=== PATIENT | female | born 1995 | race Caucasian/White ===

== ENCOUNTER 2017-07-18 16:41 | Emergency (ER) | payer SELFPAY ==
--- NOTE | ~2017-07-18 | ER ---
PATIENT'S NAME: KODY STEINBERG [facility] AGE: 22 Y [address] ROOM: [place] [address] LOCATION: [facility] ADMIT DATE: 07/18/2017 ER/Outpatient Report DISCHARGE DATE: 07/18/2017 FAMILY PHYSICIAN: PHYSICIAN, JIMMY ATTENDING PHYSICIAN: Maida Dillon Time of Arrival: 1641. Time of Evaluation: 1720. IDENTIFICATION: A 22-year-old female. CHIEF COMPLAINT: Chest pain. HISTORY OF PRESENT ILLNESS: The patient is a 22-year-old female who presented with chest pain. Initial workup was initiated after discussion with the nursing staff, but there was a delay in seeing the patient due to high volume in the emergency room. The patient has pain in her midportion of her back and chest, worse with movement. She is short of breath. She has never had pain like this before. She has had no recent injury. She is on progesterone implant in her left arm, but it May 01. ALLERGIES: CIPRO. CURRENT MEDICATIONS: Denies. MEDICAL PROBLEMS: Endometriosis and hypotension. PRIOR SURGERIES: Laparoscopy, colonoscopy, section x2. SOCIAL HISTORY: The patient is . Lives here in [place]. Tobacco use, 1 pack per day. Alcohol use, denies. Drug use, denies. REVIEW OF SYSTEMS: All systems reviewed and negative other than what is noted in the HPI. LAST MENSTRUAL PERIOD: Unknown. PATIENT'S NAME: KODY STEINBERG [facility] AGE: 22 Y [address] ROOM: [place] [address] LOCATION: [facility] ADMIT DATE: 07/18/2017 ER/Outpatient Report DISCHARGE DATE: 07/18/2017 FAMILY PHYSICIAN: PHYSICIAN, NO ATTENDING PHYSICIAN: Maida Dillon PHYSICAL EXAMINATION: VITAL SIGNS: Height 5 feet 1 inch, weight 48.2 kg. Blood pressure 110/55, pulse 99, respirations 18, temperature 98.7, sats 93%. GENERAL: A 22-year-old female, in moderate distress. She is seated in an upright position, very stiff. She said that is her position of comfort or else leaning completely forward. HEENT: Unremarkable. LUNGS: Clear to auscultation. HEART: Regular rate and rhythm. No murmur, rub, or gallop. ABDOMEN: Bowel sounds present. Soft, nondistended, nontender. SKIN: [place], warm, and dry. No lesions or rashes noted. BACK: No tenderness to palpation. No CVA tenderness. MUSCULOSKELETAL: No chest wall tenderness. No lower extremity edema. No calf tenderness. I cannot reproduce her pain to palpation at all, but she states it is worse with movement. EMERGENCY DEPARTMENT COURSE: She was given Toradol 30 mg IM with no relief of her pain. UA negative. Chest x-ray, no acute findings. EKG normal sinus rhythm at 86 beats per minute. No acute ST elevation or depression. CBC is within normal limits. Sodium 140, potassium 3.5, chloride 107, CO2 of 27, BUN 10, creatinine 0.8. Blood sugar 115. Liver enzymes normal. Cardiac enzymes negative. HCG less than 1. D-dimer less than 0.19. CT scan PE protocol is pending at the time of shift change as the patient continued to have severe 10/10 pain despite the Toradol. An IV was initiated. Fentanyl was given for pain relief and CT PE protocol to rule out PE and aortic dissection was ordered and Dr. Rodas will assume care. MAIDA DILLON MD CAR/modl /[id number] d: 07/19/17707 t: 07/27/172040, OUTPATIENT REPORT
--- NOTE | ~2017-07-18 | ER ---
PATIENT'S NAME: KODY STEINBERG [facility] AGE: 22 Y [address] ROOM: [place] [address] LOCATION: [facility] ADMIT DATE: 07/18/2017 ER/Outpatient Report DISCHARGE DATE: 07/18/2017 FAMILY PHYSICIAN: PHYSICIAN, NO ATTENDING PHYSICIAN: Jessica Jackson This patient was signed out to me at change of shift from Dr. Jackson. Please see her note for further information. HISTORY OF PRESENT ILLNESS: Briefly, this is a 22-year-old, who presents with chest pain and back pain. She had lab work that was mostly unremarkable with pending CT chest to rule out dissection and PE. They discussed this with the radiologist. It is negative. It is the entirely normal chest CT, negative for any PE or dissection or any abnormality in the chest. The patient was given fentanyl. After which, she felt better. Unclear what is causing her this pain, however, no emergent causes found like dissection or PE or any ACS. This was discussed with the patient. She will follow with her primary care doctor. She understands the reasons to go back to the ER sooner. IMPRESSION: Atypical chest pain. MD JEAN-CLAUDE SARAVIA/malena /[id number] d: 07/19/17 0330 t: 07/20/17 0607, OUTPATIENT REPORT
[2017-07-18 17:10] LABS: BASOPHIL % 0.3 %; EOSINOPHIL # 0.3 K/uL (0.0-0.5); EOSINOPHIL % 2.8 %; HEMATOCRIT 36.7 % (33.0-46.0); HEMOGLOBIN 12.8 g/dL (11.0-15.0); IMMATURE GRANULOCYTE % 0.2 %; LYMPHOCYTE # 2.5 K/uL (0.8-4.0); LYMPHOCYTE % 26.9 %; MCHC 34.9 gm/dL (32.0-36.5); MCV 88.9 fl (83.0-98.0); MONOCYTE # 0.7 K/uL (0.0-1.0); MPV 11.3 fl (9.4-12.4); NEUTROPHIL # (ANC) 5.8 K/uL (1.8-7.8); NEUTROPHIL % 61.8 %; NRBC % 0 /100WBC (0-0.00); PLATELET COUNT 160 K/uL (150-450); RBC 4.13 M/uL (3.50-5.00); RDW-CV 12.4 % (11.9-14.6); WBC 9.3 K/uL (4.0-11.0)
[2017-07-18 17:18] LABS: INR - (THERAPEUTIC) 1.07 (0.92-1.07); PROTIME 11.2 SECONDS (9.8-11.4); PTT 28 SECONDS (25-32)
[2017-07-18 17:30] LABS: ALBUMIN 4.2 gm/dL (3.5-5.0); ALK PHOS 55 IU/L (33-138); ALT 19 IU/L (12-78); ANION GAP 9.5 (10.0-19.0); AST 13 IU/L (10-40); BLOOD UREA NITROGEN 10 mg/dL (6-24); CALCIUM 8.8 mg/dL (8.5-10.5); CHLORIDE 107 mMol/L (96-110); CO2 27 mMol/L (22-32); CPK 56 IU/L (21-215); CREATININE 0.8 mg/dL (0.5-1.1); MAGNESIUM 2.3 mg/dL (1.8-2.6); POTASSIUM 3.5 mMol/L (3.7-5.1); SODIUM 140 mMol/L (135-145); TOTAL BILIRUBIN 0.7 mg/dL (0.0-1.5); TOTAL PROTEIN 7.7 g/dL (6.0-8.4)
[2017-07-18 18:22] LABS: BILIRUBIN URINE NEGATIVE (NEGATIVE); BLOOD URINE NEGATIVE /UL (NEGATIVE); COLOR URINE YELLOW (YELLOW); GLUCOSE URINE NEGATIVE (NEGATIVE); KETONE URINE NEGATIVE (NEGATIVE); LEUKOCYTES URINE 25 /UL (NEGATIVE); NITRITE URINE NEGATIVE (NEGATIVE); PROTEIN URINE NEGATIVE (NEGATIVE); TURBIDITY URINE CLEAR (CLEAR); UROBILINOGEN URINE NORMAL (NORMAL)
[2017-07-18 18:31] LABS: RBC URINE RARE #/HPF (NEGATIVE); WBC URINE 0-2 #/HPF (NEGATIVE)
[2017-07-18 18:32] LABS: AMORPHOUS URINE 1+ (NEGATIVE); BACTERIA URINE MODERATE (NEGATIVE)
== END 2017-07-18 18:58 | disposition disaster alternative care site (69) ==
LOC: GMED 16:41
PROVIDERS: Family Medicine
DX: R07.89 Other chest pain (principal); I95.9 Hypotension, unspecified; F17.210 Nicotine dependence, cigarettes, uncomplicated; Z98.890 Other specified postprocedural states; Z88.1 Allergy status to other antibiotic agents
CPT/HCPCS: J1885; J3010; Q9967